=== PATIENT | male | born 1955 | race Caucasian/White ===

== ENCOUNTER → 2018-04-07 | Outpatient (CLI) | payer OTHER ==
[~2018-04-07] MED LIST: ACHD5005 PO; NAPR-243 PO; SULF1TAB38 PO; TRM50T PO
--- NOTE | 2018-04-07 14:10 | Diagnostic Imaging Report ---
INDICATION: Left leg swelling TECHNIQUE: Grayscale with color-flow and Doppler waveform evaluation of the left lower extremity deep venous system. CORRELATION STUDY: None FINDINGS: Color and grayscale sonographic images demonstrate no intraluminal defect within the visualized portion of the common femoral, superficial femoral and/or popliteal veins to suggest thrombus formation. These vessels demonstrate normal response to compression and augmentation. No soft tissue fluid collection. IMPRESSION: 1. Negative for deep venous thrombosis of the left leg. Dictated by: Dictated on workstation # [id number]
== END ==
LOC: RAD 11:42
PROVIDERS: ATTEND Nurse Practitioner Primary Care
DX: R60.0 Localized edema (principal)

== ENCOUNTER → 2018-05-14 | Outpatient (CLI) | payer OTHER ==
--- NOTE | 2018-05-14 09:42 | Diagnostic Imaging Report ---
PROCEDURE: US abdomen complete. TECHNIQUE: Multiple real-time grayscale images were obtained over the abdomen in various projections. INDICATION: Elevated liver function tests. The liver is enlarged at 19 cm. No discrete liver mass is identified. The portal vein is patent and shows normal direction of flow. The gallbladder is without stones or sludge. No wall thickening or pericholecystic fluid is seen. No intrahepatic biliary duct dilatation is seen. The extrahepatic bile duct is obscured by bowel gas. The pancreas, aorta and IVC are also obscured by bowel gas. Spleen is normal in size 11.4 cm. The right and left kidneys are unremarkable. There is no ascites. IMPRESSION: 1. Hepatomegaly. No discrete liver mass is identified. 2. No evidence of cholelithiasis or acute cholecystitis. 3. Moderately compromised due to bowel gas, described above. No other significant abnormality is seen. Dictated by: Dictated on workstation # [id number]
== END ==
LOC: RAD 08:49
PROVIDERS: ATTEND Nurse Practitioner Primary Care
DX: R16.0 Hepatomegaly, not elsewhere classified (principal); R14.1 Gas pain; F10.20 Alcohol dependence, uncomplicated; R79.89 Other specified abnormal findings of blood chemistry; R60.0 Localized edema; R18.8 Other ascites
CPT/HCPCS: 76700

== ENCOUNTER → 2020-08-07 | Outpatient (CLI) | payer SELFPAY ==
[~2020-08-07] VITALS: Ht 167 cm; Wt 96.0 kg
[~2020-08-07] MED LIST changes: +CATHETER FLUSH 10 ML SYR IV PRN; +REGADENOSON 0.4 MG/5 ML SYR (LEXISCAN) IV ONE
[2020-08-07 11:28] VITALS: BP 162/81
--- NOTE | 2020-08-07 13:00 | STRESS TEST ---
DATE OF SERVICE: 08/07/2020 RESTING AND POST REGADENOSON TECHNETIUM-99M TETROFOSMIN SPECT CT IMAGING ORDERING PHYSICIAN: Rosa Olson APRN PRIMARY PHYSICIAN: Dr. Kuhn. OTHER PHYSICIAN: Dr. Enciso. CLINICAL DIAGNOSIS: Chest discomfort. Baseline images were carried out after injection of 11 mCi of technetium-99m Tetrofosmin. This was followed by 0.4 mg Regadenoson and 33 mCi of technetium-99m Tetrofosmin for stress imaging. The electrocardiogram showed sinus rhythm at baseline. It did not change significantly with the Regadenoson infusion. The patient tolerated the procedure well. Review of images at rest and following stress does not indicate any significant perfusion defects consistent with myocardial ischemia or infarction. Gated images show normal global left ventricular systolic function with normal regional wall motion. Left ventricular ejection fraction is calculated to be 69%. Left ventricular end diastolic volume is 67 mL. TID is absent (1.03). CONCLUSIONS: 1. No evidence of any significant myocardial ischemia or infarction on this study. 2. Normal regional wall motion. 3. Normal global left ventricular systolic function with a calculated ejection fraction of 69%. Job ID: [id number] DocumentID: [id number] Dictated Date: 08/07/2020 12:46:11 Technology Applications Teacher Date: 08/07/2020 12:59:17 Dictated By: URSULA ENCISO MD, MA, FACP, FACC,
== END ==
LOC: CARD 10:10
PROVIDERS: ATTEND Nurse Practitioner Family
DX: I51.7 Cardiomegaly (principal); I34.0 Nonrheumatic mitral (valve) insufficiency; R55 Syncope and collapse; F10.10 Alcohol abuse, uncomplicated
CPT/HCPCS: 78452; 93017; 93225; 93226; 93306; A9502

== ENCOUNTER 2021-01-21 19:21 | Emergency (ER) | payer SELFPAY ==
[~2021-01-21] VITALS: Ht 170.2 cm; Wt 90.9 kg
[~2021-01-21 19:21] MED LIST changes: -CATHETER FLUSH 10 ML SYR IV PRN; -REGADENOSON 0.4 MG/5 ML SYR (LEXISCAN) IV ONE
[2021-01-21 19:28] VITALS: BP 165/81
--- NOTE | 2021-01-21 19:36 | ED EENT ---
History of Present Illness General Chief Complaint: Nasal Problems Stated Complaint: NOSE BLEED Source: patient Exam Limitations: no limitations History of Present Illness Date Seen by Provider: Jan 21, 2021 Time Seen by Provider: 19:34 Initial Comments To ER with right-sided nosebleed that began about 30 minutes ago. He coughed up a large clot into the toilet at home. Denies any nausea vomiting or cough otherwise. He states he cleared his throat and this came up. Occasionally does have some right sided epistaxis but usually he can get it to stop by just pinching it. No anticoagulant use. Bleeding has stopped upon arrival to ER. Timing/Duration: abrupt Severity: moderate Location: nose Prearrival Treatment: no prearrival treatment Associated Symptoms: denies symptoms Allergies and Home Medications Allergies Coded Allergies: No Known Drug Allergies (Unverified , 04/09/11) Home Medications Hydrocodone Bit/Acetaminophen 1 Each Tablet, 1-2 EACH PO Q6H PRN Prescribed by: RADHA HAMEED on 04/10/1112 Naproxen 500 Mg Tablet, 1 EACH PO TID PRN FOR PAIN Prescribed by: ALLISON HANNA on 06/14/112129 Tramadol Hcl 50 Mg Tab, 50 MG PO Q4-6HOURS PRN FOR PAIN Prescribed by: ALLISON HANNA on 06/14/112129 Trimethoprim/Sulfamethoxazole 1 Ea Tablet, 1 EA PO BID Prescribed by: RADHA HAMEED on 04/10/1112 Patient Home Medication List Home Medication List Reviewed: Yes Review of Systems Review of Systems Constitutional: see HPI Eyes: No Symptoms Reported Ears: No Symptoms Reported Nose: see HPI, epistaxis Mouth: no symptoms reported Throat: no symptoms reported Respiratory: no symptoms reported Cardiovascular: no symptoms reported Musculoskeletal: no symptoms reported Skin: no symptoms reported Neurological: No Symptoms Reported Hematologic/Lymphatic: No Symptoms Reported Physical Exam Height, Weight, BMI Height: '" Weight: lbs. oz. kg; 34.42 BMI Method:Stated General Appearance: WD/WN, no apparent distress Eyes: bilateral eye normal inspection, bilateral eye PERRL, bilateral eye EOMI Ears: bilateral ear auricle normal, bilateral ear canal normal, bilateral ear TM normal Nose: other (Dried blood over the anterior septum on the right. Left side is normal in appearance. There is no blood in the oropharynx. No active bleeding from the nostril. Will observe and check a CBC.) Mouth/Throat: normal mouth inspection, pharynx normal Neck: non-tender, full range of motion Respiratory: no respiratory distress, no accessory muscle use Neurologic/Psychiatric: alert, normal mood/affect, oriented x 3 Skin: normal color, warm/dry Progress/Results/Core Measures Results/Orders My Orders Orders - LESLIE BURKS APRN Cbc No Diff (01/21/21 19:34) Departure Impression Primary Impression: Epistaxis Disposition: HOME, SELF-CARE Condition: Stable Departure-Patient Inst. Decision time for Depature: 19:36 Referrals: PRECIOUS ORTA DO (PCP) Primary Care Physician [facility] (Family) Primary Care Physician Patient Instructions: Nosebleeds (DC) Add. Discharge Instructions: 1. If this happens again get some Afrin and apply 1 spray up each nostril then lean forward and pinch your nose for 20 minutes. If this fails to stop the bleeding then return to the emergency room. Follow-up with your doctor next week. All discharge instructions reviewed with patient and/or family. Voiced understanding. LESLIE BURKS APRN Jan 21, 2021 19:36
[2021-01-21 19:53] LABS: HEMOGLOBIN 13.8 g/dL (13.3-17.7); WHITE BLOOD COUNT 6.6 10^3/uL (4.3-11.0)
== END 2021-01-21 20:15 | disposition home or self-care (01) ==
LOC: EDUNIT# 19:21 → ER 19:23
DX: R04.0 Epistaxis (principal)
CPT/HCPCS: 36415; 85027; 99283